=== PATIENT | male | born 1975 | race Caucasian/White ===

== ENCOUNTER 2023-11-13 10:09 | Emergency (ER) | payer OTHER, SELFPAY ==
--- NOTE | ~2023-11-13 | XR_ITS ---
XR toe 1st LT min 2V DATE: 11/13/2023 11:02 INDICATION: Fall. Hyperextension injury of the great toe TECHNIQUE: 4 views COMPARISON: None FINDINGS: Nondisplaced intra-articular fracture of base of the distal phalanx. No other fracture or dislocation. IMPRESSION: Subtle nondisplaced intra-articular fracture of the base of distal phalanx of first digit Reviewed, dictated and finalized at location A.
[2023-11-13 10:22] VITALS: BP 128/83; PULSE 60; RESP 16; TEMP 36.3; O2SAT 100
--- NOTE | 2023-11-13 10:28 | ED.EXTPRO ---
HPI - Extremity Problem General Chief complaint: Extremity Problem,Nontraumatic Stated complaint: Big Toe Lt Foot Pain and Swelling Time Seen by Provider: 11/13/23 10:28 Source: patient Mode of arrival: ambulatory Limitations: no limitations History of Present Illness HPI Narrative: 48-year-old male presents with pain and bruising to left great toe. Patient states yesterday while walking he tripped and fell and the left great toe hyperextended. Pain worse when ambulatory. Concern for fracture. All systems reviewed and negative except as noted above. Related Data Home Medications Medication Instructions Recorded Confirmed atorvastatin 10 mg tablet 10 mg PO DAILY 11/13/23 11/13/23 Allergies Allergy/AdvReac Type Severity Reaction Status Date / Time No Known Allergies Allergy Mild Verified 11/13/23 10:23 Review of Systems Review of Systems: CONSTITUTIONAL: Denies fever, chills, or sweats. EYES: Denies visual changes, redness, or discharge. ENT: Denies rhinorrhea, congestion, sore throat, or otalgia. CARDIOVASCULAR: Denies chest pain, palpitations, or edema. RESPIRATORY: Denies cough or dyspnea. GASTROINTESTINAL: Denies abdominal pain, nausea, vomiting, or diarrhea. GENITOURINARY: Denies dysuria or hematuria. SKIN: Denies rash or itching. MUSCULOSKELETAL: Reports pain and swelling to left great toe. NEUROLOGIC: Denies headache, numbness, or weakness. PSYCHIATRIC: Denies anxiety or depression. All other systems reviewed are negative, except as documented in HPI. PMFSH Comments At time of signature, agree with nursing past medical, surgical, social and family history. There is no relevant family history pertinent to the presenting complaint. Exam Narrative: GENERAL: This is a well-nourished, well-developed patient, in no apparent distress. HEAD: normocephalic, atraumatic. EYES: PERRL. Sclera clear/white. Vision is grossly intact. EARS: External ears normal NOSE: External nose normal NECK: Neck supple, non-tender without lymphadenopathy, masses or thyromegaly. CARDIOVASCULAR: Regular rate and rhythm without murmurs, gallops, or rubs. RESPIRATORY: Clear to auscultation. Breath sounds equal bilaterally. No wheezes, rales, or rhonchi. SKIN: warm, Dry, intact with no suspicious lesions or rash, good texture and turgor. NEURO: awake, alert, and oriented to person, place and time. There were no obvious focal neurologic abnormalities. EXTREMITIES: Swelling and bruising to left great toe. No deformity. No damage to toenail. Tenderness on palpation of distal phalanx. Range of motion intact but somewhat decreased due to pain. Course Course Level of Care: Express Care Visit Vital Signs Vital signs: Vital Signs Temperature 36.3 C L 11/13/23 10:22 Pulse Rate 60 11/13/23 10:22 Respiratory Rate 16 11/13/23 10:22 Blood Pressure 128/83 11/13/23 10:22 Pulse Oximetry 100 11/13/23 10:22 Oxygen Delivery Room Air 11/13/23 10:22 Temperature 36.3 C L 11/13/23 10:22 Pulse Rate 60 11/13/23 10:22 Respiratory Rate 16 11/13/23 10:22 Blood Pressure 128/83 11/13/23 10:22 Pulse Oximetry 100 11/13/23 10:22 Oxygen Delivery Room Air 11/13/23 10:22 Reviewed MDM - Extremity (Nontraumatic) MDM Narrative Medical decision making narrative: discussed x-ray results with patient. Patient placed in postop shoe by Mitesh Adler. Patient referred to Orthopedics for fracture care. Patient is aware of diagnosis, understands and agrees to treatment plan. Anticipatory guidance given. Patient agrees to follow-up as directed and is aware of reasons to seek care at the emergency department. Portions of this record may have been created with voice recognition software Imaging Data My impression: Agree with radiologist Radiologist's impression: XR toe 1st LT min 2V DATE: 11/13/2023 11:02 INDICATION: Fall. Hyperextension injury of the great toe? TECHNIQUE: 4 views? CO
== END 2023-11-13 11:30 | disposition home or self-care (01) ==
PROVIDERS: Emergency Provider Nurse Practitioner Family; PCP Family Medicine
DX: S92.425A Nondisplaced fracture of distal phalanx of left great toe, initial encounter for closed fracture (principal); W01.0XXA Fall on same level from slipping, tripping and stumbling without subsequent striking against object, initial encounter; E78.00 Pure hypercholesterolemia, unspecified; Z86.16 Personal history of COVID-19
CPT/HCPCS: 73660; 99214; G0463